=== PATIENT | male | born 1955 | race Caucasian/White ===

== ENCOUNTER → 2019-10-06 | Outpatient (CLI) | payer BC, MEDICARE | END | disposition home or self-care (01) | LOC: LABWHC1 10:36 | PROVIDERS: ATTEND Surgery Plastic and Reconstructive Surgery | DX: Z11.59 Encounter for screening for other viral diseases (principal) | CPT/HCPCS: 87635 ==

== ENCOUNTER → 2019-10-09 | Day surgery (SDC) | payer BC, MEDICARE ==
[2019-10-08 09:02] VITALS: BMI 28.8
--- NOTE | 2019-10-08 19:43 | P.GSHP ---
History of Present Illness H&P Date: 10/09/19 CHIEF COMPLAINT: Cologaurd HISTORY OF PRESENT ILLNESS: The patient is a 64-year-old male who presents with Cologaurd. Lower endoscopy was offered for further evaluation and management. PAST MEDICAL HISTORY: Please see list. PAST SURGICAL HISTORY: Please see list. MEDICATIONS: Please see list. ALLERGIES: Please see list. SOCIAL HISTORY: No illicit drug use FAMILY HISTORY: No reports of Crohn disease or ulcerative colitis. REVIEW OF ORGAN SYSTEMS: CONSTITUTIONAL: No reports of fevers or chills. PHYSICAL EXAM: VITAL SIGNS: Stable GENERAL: Well-developed pleasant in no acute distress. HEENT: No scleral icterus. Extraocular movements grossly intact. Moist buccal mucosa. NECK: Supple without lymphadenopathy. CHEST: Unlabored respirations. Equal bilateral excursions. CARDIOVASCULAR: Regular rate and rhythm. Distal 2+ pulses. ABDOMEN: Soft, nontender, nondistended. MUSCULOSKELETAL: No clubbing, cyanosis, or edema. ASSESSMENT: 1. Cologaurd positive PLAN: 1. Recommend proceeding with a lower endoscopy Past Medical History Past Medical History: Atrial Fibrillation, Cancer, Chest Pain / Angina, Diabetes Mellitus, Hyperlipidemia, Hypertension, Myocardial Infarction (OR) Additional Past Medical History / Comment(s): STATES 4 OR'S LAST 2014, AICD, HX OF MELANOMA., POSITIVE COLOGARD Last Myocardial Infarction Date:: 2014 History of Any Multi-Drug Resistant Organisms: None Reported Past Surgical History: AICD, Coronary Bypass/CABG, Heart Catheterization With Stent Additional Past Surgical History / Comment(s): cath with stent 2008, CABG March 2015 Past Anesthesia/Blood Transfusion Reactions: No Reported Reaction Date of Last Stent Placement:: 2014 Type of Cardiac Device: AICD Device Placement Date:: 2015 Past Psychological History: Anxiety Additional Psychological History / Comment(s): PANIC ATTACKS- ANXIOUS ABOUT COLONOSCOPY. Smoking Status: Former smoker Past Alcohol Use History: None Reported Additional Past Alcohol Use History / Comment(s): QUIT SMOKING 2014, SMOKED 3/4 PPD, STARTED SMOKING AGE 13. Past Drug Use History: Marijuana Additional Drug Use History / Comment(s): OCCASIONAL MARIJUANA USE - Past Family History Brother(s) Family Medical History: Myocardial Infarction (OR) Sister(s) Family Medical History: Diabetes Mellitus Medications and Allergies Home Medications Medication Instructions Recorded Confirmed Type Aspirin 81 mg PO HS 04/15/15 10/08/19 History Insulin Detemir [Levemir Flextouch] 80 units SQ HS 04/15/15 10/08/19 History Simvastatin [Zocor] 40 mg PO HS 04/15/15 10/08/19 History Albuterol Inhaler (Mhu) [Ventolin 1 - 2 puff INHALATION RT-Q6H PRN 11/14/15 10/08/19 History Hfa Inhaler (Mhu)] Furosemide [Lasix] 40 mg PO DAILY 11/14/15 10/08/19 History Losartan Potassium [Cozaar] 25 mg PO DAILY 11/14/15 10/08/19 History Apixaban [Eliquis] 5 mg PO BID tab 11/17/15 10/08/19 Rx Insulin Aspart [NovoLOG Flexpen] 15 units SQ TID-W/MEALS 10/08/19 10/08/19 History Metoprolol Succinate (ER) [Toprol 50 mg PO DAILY 10/08/19 10/08/19 History Xl] Allergies Allergy/AdvReac Type Severity Reaction Status Date / Time Penicillins Allergy Rash/Hives Verified 10/08/19 08:20
[~2019-10-09] MED LIST: LACTATED RINGERS 1,000 ML IV ONE; LACTATED RINGERS 1,000 ML IV SCH; LIDOCAINE 1% (10MG/ML) FOR IV START INTRADERMA ONE; LIDOCAINE 1% INJ 10MG/ML (20 ML MDV) ONE; MIDAZOLAM 2 MG/2 ML VIAL IVP ONE; MIDAZOLAM 2 MG/2 ML VIAL ONE; PROPOFOL 10 MG/ML 20 ML VIAL IV ONE
[2019-10-09 11:02] VITALS: RESP 16; TEMP 97
[2019-10-09 11:03] LABS: Glucose,Whole Blood 101 mg/dL (75-99)
--- NOTE | 2019-10-09 12:25 | P.HPADDEND ---
H&P Addendum H&P Addendum Date: 10/09/19 Patient comes in for first colonoscopy in lifetime. Had positive abnormal stool study test for colon adenoma. Will proceed with colonoscopy
--- NOTE | 2019-10-09 12:29 | P.PCN ---
Date of Procedure: 10/09/19 Description of Procedure: PREOPERATIVE DIAGNOSIS: Abnormal cologaurd First colonoscopy study POSTOPERATIVE DIAGNOSIS: Tubular adenoma sigmoid colon Tubular adenoma transverse colon Tubular adenoma descending colon Sigmoid diverticulosis OPERATION: Colonoscopy to the ileocecal valve and appendiceal orifice. Colonoscopy with multiple hot snare polypectomies SURGEON: Carmencita Chang MD. ANESTHESIA: MAC. INDICATIONS: The patient is an 64-year-old male who presents for first colonoscopy study. He has abnormal stool study for adenoma. Benefits and risks were described and informed consent was obtained. DESCRIPTION OF PROCEDURE: The patient had undergone Suprep. He had been brought into the operating room and laid in the left lateral decubitus position. After adequate intravenous sedation, the rectum was examined with 2% lidocaine jelly. The prostate was unremarkable. No external hemorrhoids were encountered. The rectal tone was within normal limits. No lesions were palpated in the rectal vault. An Olympus colonoscope was advanced until the ileocecal valve and appendiceal orifice were clearly viewed. The prep was fair. Sigmoid diverticulosis was encountered. Multiple colonic polyps were found and snare polypectomy. No evidence of focal colitis was found. Retroflexion of the scope demonstrated grade 2 internal hemorrhoids without active bleeding or inflammation. The colon was desufflated. The patient had tolerated the procedure well. Withdrawal time was over 6 minutes. FINDINGS: Aronchick preparation quality scale 2 (1-5) Internal hemorrhoids, grade 2 No external hemorrhoids No arteriovenous malformations. Sigmoid diverticulosis, moderate. Removal of 3 polyps from the proximal, mid transverse colon and descending colon: - Snare polypectomy 10 cm from the anal verge, 5 mm tubulovillous adenoma polyp. - Snare polypectomy 60 cm from the anal verge, 8 mm flat villous adenoma polyp. - Snare polypectomy midtransverse colon, 12 mm flat villous adenoma polyp. No focal colitis. RECOMMENDATIONS: Repeat colonoscopy 2 years, September 2021 Plan - Discharge Summary New Discharge Prescriptions: No Action Insulin Detemir [Levemir Flextouch] 80 units SQ HS Aspirin 81 mg PO HS Simvastatin [Zocor] 40 mg PO HS Furosemide [Lasix] 40 mg PO DAILY Albuterol Inhaler (Mhu) [Ventolin Hfa Inhaler (Mhu)] 1 - 2 puff INHALATION RT-Q6H PRN PRN Reason: Shortness Of Breath Losartan Potassium [Cozaar] 25 mg PO DAILY Apixaban [Eliquis] 5 mg PO BID tab Metoprolol Succinate (ER) [Toprol Xl] 50 mg PO DAILY Insulin Aspart [NovoLOG Flexpen] 15 units SQ TID-W/MEALS Discharge Medication List Aspirin 81 mg PO HS 04/15/15 [History] Insulin Detemir [Levemir Flextouch] 80 units SQ HS 04/15/15 [History] Simvastatin [Zocor] 40 mg PO HS 04/15/15 [History] Albuterol Inhaler (u) [Ventolin Hfa Inhaler (u)] 1 - 2 puff INHALATION RT- Q6H PRN 11/14/15 [History] Furosemide [Lasix] 40 mg PO DAILY 11/14/15 [History] Losartan Potassium [Cozaar] 25 mg PO DAILY 11/14/15 [History] Apixaban [Eliquis] 5 mg PO BID tab 11/17/15 [Rx] Insulin Aspart [NovoLOG Flexpen] 15 units SQ TID-W/MEALS 10/08/19 [History] Metoprolol Succinate (ER) [Toprol Xl] 50 mg PO DAILY 10/08/19 [History]
[2019-10-09 12:31] VITALS: PULSE 72
[2019-10-09 12:51] VITALS: BP 120/80
== END | disposition home or self-care (01) ==
LOC: ORWHC2ENDO 10:29
PROVIDERS: ATTEND Surgery Plastic and Reconstructive Surgery
DX: D12.3 Benign neoplasm of transverse colon (principal); D12.4 Benign neoplasm of descending colon; D12.5 Benign neoplasm of sigmoid colon; K57.30 Diverticulosis of large intestine without perforation or abscess without bleeding; K64.1 Second degree hemorrhoids; I25.2 Old myocardial infarction; I48.91 Unspecified atrial fibrillation; I10 Essential (primary) hypertension; E78.5 Hyperlipidemia, unspecified; E11.9 Type 2 diabetes mellitus without complications; F41.9 Anxiety disorder, unspecified; F41.0 Panic disorder [episodic paroxysmal anxiety]; Z88.0 Allergy status to penicillin; Z79.4 Long term (current) use of insulin; Z79.01 Long term (current) use of anticoagulants; Z79.82 Long term (current) use of aspirin; Z79.899 Other long term (current) drug therapy; Z87.891 Personal history of nicotine dependence; Z95.1 Presence of aortocoronary bypass graft; Z95.5 Presence of coronary angioplasty implant and graft; Z95.810 Presence of automatic (implantable) cardiac defibrillator; Z85.820 Personal history of malignant melanoma of skin; Z82.49 Family history of ischemic heart disease and other diseases of the circulatory system; Z83.3 Family history of diabetes mellitus
CPT/HCPCS: 88305; 45385; J2250; J2001; J2704

== ENCOUNTER → 2021-03-30 | Outpatient (CLI) | payer MEDICARE, BC | END | disposition home or self-care (01) | LOC: RADCTMAIN 11:50 | PROVIDERS: ATTEND Family Medicine | DX: I73.9 Peripheral vascular disease, unspecified (principal) | CPT/HCPCS: 82565; 84520 ==

== ENCOUNTER → 2021-05-09 | Outpatient (CLI) | payer MEDICARE, BC ==
--- NOTE | 2021-05-10 08:08 | CT ---
CT angiogram of the abdominal aorta with runoff HISTORY: Peripheral vascular disease helical acquisition obtained from the level of the descending aorta through the legs following dynami c administration 80 cc [id number]-370 IV. Automated exposure control for dose reduction, DLP 1610.7 mGyce ntimeters No comparisons V descending aorta is patent, atheromatous changes are present within the abdominal aorta, there is a theromatous plaque, the celiac axis, superior mesenteric artery, bilateral renal arteries, inferior m esenteric artery are patent. Common iliac arteries show atheromatous change, there is plaque proximal ly in the right, axial image #83, there may be some poststenotic dilatation immediately distal. The l eft common iliac artery is occluded but reconstituted via the internal iliac artery. Right internal i liac, bilateral external iliac arteries, common femoral, deep and superficial femoral arteries are pa tent. Atheromatous changes present at the level of Andres's canal bilaterally. The popliteal artery, trifurcation vessels are patent proximally. On the left the tibioperoneal trunk does not enhance well distally, anterior tibial and posterior tibial arteries are patent into the foot. On the right anter ior and posterior tibial arteries are patent into the foot do show some atheromatous change, tibioper cueto trunk is not well enhanced peripherally. There is a lead in the right ventricle. Lung bases are clear. There are is calcification in the lower pole of the left kidney, probable partial staghorn calculus measuring proximately 2 cm x 2.2 cm in s ize. Degenerative disc changes, facet arthropathy noted in the lumbar spine. No evident solid organ a bdomen. No ascites. Prostate is enlarged. Urinary bladder is distended. IMPRESSION: Left common iliac artery occlusion, peripheral vascular occlusive disease as described. L eft-sided nephrolithiasis.
== END | disposition home or self-care (01) ==
LOC: RADCTMAIN 17:59
PROVIDERS: ATTEND Family Medicine
DX: I74.5 Embolism and thrombosis of iliac artery (principal); I99.8 Other disorder of circulatory system
CPT/HCPCS: 82565; 84520; 75635; 36415; Q9967

== ENCOUNTER 2021-09-21 11:11 | Day surgery (SDC) | payer MEDICARE, BC ==
[2021-09-20 13:35] VITALS: BMI 28.3
[~2021-09-21 11:11] MED LIST changes: +ALPRAZolam 0.25 MG TAB PO PRN; +ASPIRIN 325 MG TAB PO PRN; -LACTATED RINGERS 1,000 ML IV ONE; -LACTATED RINGERS 1,000 ML IV SCH; -LIDOCAINE 1% (10MG/ML) FOR IV START INTRADERMA ONE; -LIDOCAINE 1% INJ 10MG/ML (20 ML MDV) ONE; -MIDAZOLAM 2 MG/2 ML VIAL IVP ONE; -MIDAZOLAM 2 MG/2 ML VIAL ONE; -PROPOFOL 10 MG/ML 20 ML VIAL IV ONE; +SODIUM CHLORIDE 0.9% 1,000 ML in EMPTY BAG 1 BAG IV ONE
[2021-09-21 11:39] LABS: Glucose,Whole Blood 123 mg/dL (75-99)
[2021-09-21] MEDS ORDERED: SODIUM CHLORIDE 0.9% 1,000 ML IV ONE (12:05)
[2021-09-21 12:20] LABS: Basophils # (A) 0.1 k/uL (0-0.2); Basophils % (A) 1 %; Eosinophils # (A) 0.2 k/uL (0-0.7); Eosinophils % (A) 2 %; HCT 50.7 % (39.0-53.0); HGB 16.2 gm/dL (13.0-17.5); Lymphocytes # (A) 1.3 k/uL (1.0-4.8); Lymphocytes % (A) 14 %; MCH 30.8 pg (25.0-35.0); MCV 96.2 fL (80.0-100.0); Mean Platelet Volume 7.1; Monocytes # (A) 0.6 k/uL (0-1.0); Monocytes % (A) 7 %; Neutrophils # (A) 6.7 k/uL (1.3-7.7); Neutrophils % (A) 74 %; Platelet Count 242 k/uL (150-450); RBC 5.28 m/uL (4.30-5.90); RDW 13.6 % (11.5-15.5); WBC 9.1 k/uL (3.8-10.6)
[2021-09-21 12:25] LABS: Calcium 9.2 mg/dL (8.4-10.2)
[2021-09-21] MEDS ORDERED: HEPARIN SODIUM 1,000 UN/ML (10ML VL) ONE (13:13)
[2021-09-21] MEDS ORDERED: fentaNYL (PF) 50 MCG/ML 2 ML AMP ONE (13:22)
[2021-09-21] MEDS: fentaNYL (PF) 50 MCG/ML 2 ML AMP IV ONE ×2 (13:24→14:40)
[2021-09-21] MEDS: MIDAZOLAM 2 MG/2 ML VIAL IV ONE ×2 (13:24→13:34)
[2021-09-21] MEDS: LIDOCAINE 1% INJ 10MG/ML (30 ML VIAL-PF) SQ ONE ×2 (13:27→13:48)
[2021-09-21] MEDS ORDERED: hydrALAZINE HCL 20 MG/ML 1 ML VIAL ONE (14:42)
[2021-09-21] MEDS ORDERED: hydrALAZINE HCL 20 MG/ML 1 ML VIAL IV ONE (14:43)
[2021-09-21] MEDS ORDERED: IOPAMIDOL-370 100ML BTL INJ ONE (15:00)
[2021-09-21] MEDS ORDERED: ENALAPRILAT 1.25 MG/ML 1 ML VIAL ONE (15:02)
[2021-09-21] MEDS ORDERED: ENALAPRILAT 1.25 MG/ML 1 ML VIAL IV ONE (15:04)
[2021-09-21] MEDS ORDERED: ONDANSETRON 4 MG/2 ML VIAL ONE (15:11)
[2021-09-21] MEDS ORDERED: NALOXONE 0.4 MG/ML 1 ML VIAL IVP PRN (15:23)
[2021-09-21] MEDS ORDERED: ALBUTEROL NEBULIZED 2.5 MG/3 ML INHALATION PRN (15:43)
[2021-09-21] MEDS ORDERED: hydrALAZINE HCL 20 MG/ML 1 ML VIAL IVP PRN (15:44)
--- NOTE | 2021-09-21 15:44 | P.OP ---
Date of Procedure: 09/21/21 Description of Procedure: Preoperative diagnosis: [Left common iliac occlusion, significant peripheral arterial disease, Cameron 3, monophasic femoral artery] Postoperative diagnosis: Same Procedure: [Ultrasound-guided left common femoral artery access Left iliofemoral angiogram Ultrasound-guided Right common femoral artery access Right iliofemoral angiogram Aortogram Percutaneous transluminal stent placement left common iliac artery, 11 x 39, 8 x 39 Percutaneous transluminal balloon angioplasty 10 x 40 balloon Moderate conscious sedation time 96 minutes Surgeon: Sumaya Demarco D.O. EBL: [Less than 10 mL] IV fluids: [See records] Urine output: [Not measured] Drains: [None] Complications: [None immediately apparent] Condition: [Stable to recovery although significantly hypertensive, medicated] Operative indication and findings: [Patient is a 66-year-old male who been having significant increasing pain in his left lower extremity. He is unable to walk 100 feet before he has the pain. He underwent ultrasound imaging which showed an ROBBY 0.7 with a monophasic femoral vessel. He also had issues waking up with numbness and tingling in that leg with significant pain and some instances of rest pain although not continuous. Computed tomography scan had been performed and he is found to have a left common iliac artery occlusion. Risks and benefits of going forward with intervention were discussed. He seemingly understood and is willing to proceed.] Procedure in detail: [Patient was taken to the special suite and placed in supine position. Bilateral groins are prepped and draped in usual sterile fashion. A preprocedure timeout was performed, all parties are in agreement. Using THE LEFT COMMON EMERALD ARTERY WAS IDENTIFIED. THE SKIN OVERLYING WAS ANESTHETIZED WITH 1% LIDOCAINE PLAIN. USING A MULTIPURPOSE NEEDLE UNDER DIRECT VISUALIZATION FEMORAL ARTERY WAS ACCESSED. After this Seldinger technique was used to place a 5-Sudanese sheath. A in angiogram was performed revealing blunt occlusion of the common iliac artery. Multiple attempts were made to cross this area from this side but were unsuccessful. At that point the right common femoral artery was identified with ultrasound. The skin overlying was anesthetized and using a micro-access needle and Seldinger technique a 5-Sudanese sheath was placed. A right iliofemoral injury and was performed. There was an area of mild stenosis of the right common iliac artery but does not appear to be flow limiting. Catheters and wires were used access the aorta. An aortogram was performed revealing significant occlusion with reconstitution of the common iliac artery. Catheters and wires were then used to cross the lesion. A snare was then used to floss the wire. Luminal access from the left femoral was obtained into the level of the aorta via this manner. This was confirmed with angiogram. The sheath was upsized to an 8-Sudanese. Areas were measured and at this point unfortunately there was no 11 x 59 stent available therefore initially an 11 x 39 stent was placed. An image was performed revealing signif icant improvement however there was some haziness just distally therefore it was extended with an 8 x 39 stent. These were ballooning expandable covered stents. The 8 stent was then postdilated with a 10 x 40 balloon up to appropriate size. Using a patent catheter final angiogram was performed revealing successful left common iliac stenting with no further stenosis with adequate flow of contrast. Given all this catheters and wires were removed. A final femoral angiogram was performed and the left access site was closed with an angioseal. The sheath on the right will be held via manual pressure once appropriate blood pressure control. Patient was rendered to recovery in stable condition having tolerated the procedure well.]
--- NOTE | 2021-09-21 16:45 | IR ---
EXAMINATION TYPE: IR stent intravas non coronary DATE OF EXAM: 09/21/2021 CLINICAL HISTORY: Peripheral vascular disease. TECHNIQUE: Fluoroscopy. COMPARISON: None. FINDINGS: Fluoroscopic guidance was provided during angiogram with stent insertion procedure perform ed by Dr. Demarco. A total of 20.1 minute of fluoroscopic time was utilized during the procedure and 6 70 spot images are acquired. Please refer to procedure note for further details. IMPRESSION: As Above.
[2021-09-21] MEDS: LOSARTAN 25 MG TAB PO SCH (17:03)
[2021-09-21 17:08] LABS: Glucose,Whole Blood 129 mg/dL (75-99)
[2021-09-21] MEDS: INSULIN ASPART (NovoLOG) 100 UNIT/ML VIAL SQ SCH ×2 (17:38→21:02)
[2021-09-21] MEDS: METOPROLOL SUCCINATE (ER) 50 MG TAB.ER.24H PO SCH (18:05)
[2021-09-21 18:26] VITALS: RESP 18
--- NOTE | 2021-09-21 19:54 | CONS ---
CONSULTATION DATE OF SERVICE: 09/21/2021 REASON FOR CONSULTATION: Advice regarding hypertensive urgency and other multiple medical issues, requested by Dr. Demarco. HISTORY OF PRESENT ILLNESS: This 66-year-old gentleman with a past medical history of CAD, COPD, diabetes mellitus, hypertension, hyperlipidemia, being followed by Dr. Noel Wilson in the outpatient setting, underwent a peripheral vascular procedure on the by Dr. Demarco. During the procedure the blood pressure was elevated up to 220/110. Patient received Vasotec. The patient is being closely monitored in the postoperative recovery unit. The patient also had episodes of vomiting. Otherwise, there is no history any headache, loss of consciousness, seizures, chest pain, palpitations. The patient also had previously hypotensive episodes with the blood pressure medications, according to him. PAST MEDICAL HISTORY: COPD, diabetes mellitus, hypertension, hyperlipidemia. HOME MEDICATIONS: Reviewed. They include Zocor, Toprol-XL. Doses and other medications are reviewed. ALLERGIES: PENICILLIN. FAMILY HISTORY: History of myocardial infarction. SOCIAL HISTORY: Previous history of smoking. REVIEW OF SYSTEMS: Fourteen-point review of systems negative except as mentioned earlier. PHYSICAL EXAMINATION: Pulse is 116, blood pressure is 170/88, respiration 20, temperature normal. HEENT: Conjunctivae normal. Oral mucosa moist. CARDIOVASCULAR: S1, S2 muffled. RESPIRATION: Breath sounds diminished at the bases. No rhonchi. No crackles. ABDOMEN: Soft, non-tender. Status post surgery. NERVOUS SYSTEM: No focal deficit. SKIN: No ulcer, rash, bleeding. LABS: Reviewed. BMP within normal limits blood glucose 134. ASSESSMENT: 1. Accelerated hypertension secondary to not taking blood pressure medication in the morning. 2. Peripheral vascular disease. 3. Coronary artery disease. 4. Chronic obstructive pulmonary disease. 5. Diabetes mellitus. 6. Hypertension. 7. Hyperlipidemia. RECOMMENDATIONS AND DISCUSSION: In this 66-year-old gentleman who presented after surgery, at this time I recommend continuing to monitor. I would recommend p.r.n. hydralazine. Resume the home medication. Monitor blood pressure closely. Monitor blood sugar closely. We will follow the patient closely with you. The patient may be asked to follow with Dr. Noel Wilson closely after discharge. P.r.n. Vasotec is ordered. Thank you Dr. Demarco, for letting us participate in the care of this patient. MMODL / IJN: [id number] / MTDD
[2021-09-21 20:42] LABS: Glucose,Whole Blood 185 mg/dL (75-99)
[2021-09-21] MEDS ORDERED: INSULIN DETEMIR (LEVEMIR) 100 UNIT/ML SYR SQ SCH (21:00)
[2021-09-21] MEDS ORDERED: ATORVASTATIN 20 MG TAB PO SCH (21:00)
[2021-09-22 03:55] VITALS: BP 152/71; PULSE 72; TEMP 98.4
[2021-09-22 06:23] LABS: Glucose,Whole Blood 81 mg/dL (75-99)
[2021-09-22] MEDS: INSULIN ASPART (NovoLOG) 100 UNIT/ML VIAL SQ SCH (06:37)
--- NOTE | 2021-09-22 08:38 | P.DS ---
Providers Expected date of discharge: 09/22/21 Attending physician: Sumaya Demarco DO Primary care physician: No[facility] Course: Discharge diagnosis: Left iliac occlusion, peripheral arterial disease status post Left iliofemoral angiogram, right ileal femoral angiogram, aortogram, percutaneous stent of the left common iliac artery and percutaneous balloon angioplasty. This is 66-year-old male with history of coronary artery disease and peripheral arterial disease, former smoker who underwent the above scheduled procedure. He is seen and examined today. He is without any complaints. No bleeding from the left puncture site. He is able to move bilateral lower extremities. No shortness of breath or chest pain. He's been up ambulating and voiding without difficulty. Tolerating his breakfast. General appearance: The patient is alert, oriented, appears in no acute distress. HET: Head is normocephalic and atraumatic. Pupils are equal and reactive. Neck: Supple without lymphadenopathy. Trachea midline. Heart: S1 S2. Regular rate and rhythm. Lungs: Clear to auscultation bilaterally. Abdomen: Soft, nontender, nondistended. Extremities: Normal skin color and turgor. No cyanosis, rash, ulceration, clubbing, or edema. Left lower extremity with palpable pedal pulse, good capillary refill, warm to the touch. Neurological: No focal deficits. Strength and sensation are grossly intact. The impression and plan of care has been dictated as directed. I performed a history and examination of this patient, discussed the same with the dictator. I agree with the dictator's note ,documented as a scribe. Any additional findings or plans will be noted. Procedures: Procedure: [Ultrasound-guided left common femoral artery access Left iliofemoral angiogram Ultrasound-guided Right common femoral artery access Right iliofemoral angiogram Aortogram Percutaneous transluminal stent placement left common iliac artery, 11 x 39, 8 x 39 Percutaneous transluminal balloon angioplasty 10 x 40 balloon Moderate conscious sedation time 96 minutes Plan - Discharge Summary Discharge Rx Participant: No New Discharge Prescriptions: New Clopidogrel [Plavix] 75 mg PO DAILY #30 tab Continue Insulin Detemir [Levemir Flextouch Pen] 75 units SQ HS Simvastatin [Zocor] 40 mg PO HS Albuterol Inhaler (Mhu) [Ventolin Hfa Inhaler (Mhu)] 1 - 2 puff INHALATION RT-Q6H PRN PRN Reason: Shortness Of Breath Losartan Potassium [Cozaar] 25 mg PO DAILY Apixaban [Eliquis] 5 mg PO BID tab Metoprolol Succinate (ER) [Toprol XL] 50 mg PO DAILY Insulin Aspart [NovoLOG Flexpen] 15 units SQ TID-W/MEALS Discontinued Aspirin 81 mg PO HS Discharge Medication List Insulin Detemir [Levemir Flextouch Pen] 75 units SQ HS 04/15/15 [History] Simvastatin [Zocor] 40 mg PO HS 04/15/15 [History] Albuterol Inhaler (Mhu) [Ventolin Hfa Inhaler (Mhu)] 1 - 2 puff INHALATION RT- Q6H PRN 11/14/15 [History] Losartan Potassium [Cozaar] 25 mg PO DAILY 11/14/15 [History] Apixaban [Eliquis] 5 mg PO BID tab 11/17/15 [Rx] Insulin Aspart [NovoLOG Flexpen] 15 units SQ TID-W/MEALS 10/08/19 [History] Metoprolol Succinate (ER) [Toprol XL] 50 mg PO DAILY 10/08/19 [History] Clopidogrel [Plavix] 75 mg PO DAILY #30 tab 09/22/21 [Rx] Follow up Appointment(s)/Referral(s): Sumaya Demarco DO [STAFF PHYSICIAN] - 1 Week Noel Wilson DO [Primary Care Provider] - 1 Week Patient Instructions/Handouts: Peripheral Vascular Angioplasty (DC), Peripheral Vascular Stent Placement (DC) Activity/Diet/Wound Care/Special Instructions: No heavy, lifting, pushing, or pulling of objects greater than 10-15 pounds. No vigorous activity. Shower daily; no tub baths, pools, or hot tubs. No driving until seen by surgeon in follow-up visit. Notify surgeon with inability to pass flatus or have bowel movements, fever greater than 101, changes in incision such as redness, swelling, drainage, or increased pain. Patient verbalized understanding of discharge instructions. Discharge Disposition: HOME SELF-CARE
[2021-09-22] MEDS ORDERED: CLOPIDOGREL 75 MG TAB PO SCH (09:00)
[2021-09-22] MEDS: METOPROLOL SUCCINATE (ER) 50 MG TAB.ER.24H PO SCH (09:58)
[2021-09-22] MEDS: LOSARTAN 25 MG TAB PO SCH (09:58)
== END 2021-09-22 10:30 | disposition home or self-care (01) ==
LOC: CATHCVL 11:11 → 3SCARD 14:59 → 6NMEDSUR 14:59 → CATHCVL 09-22 10:30
PROVIDERS: ATTEND Surgery
DX: I74.5 Embolism and thrombosis of iliac artery (principal); I25.10 Atherosclerotic heart disease of native coronary artery without angina pectoris; J44.9 Chronic obstructive pulmonary disease, unspecified; I16.0 Hypertensive urgency; R11.10 Vomiting, unspecified; E11.51 Type 2 diabetes mellitus with diabetic peripheral angiopathy without gangrene; E78.5 Hyperlipidemia, unspecified; I10 Essential (primary) hypertension; Z82.49 Family history of ischemic heart disease and other diseases of the circulatory system; Z79.899 Other long term (current) drug therapy; Z88.0 Allergy status to penicillin; Z87.891 Personal history of nicotine dependence
CPT/HCPCS: 37221; 80048; 82565; 85025; C1894 ×4; C1760; C1733; C1769 ×5; C1725; C1887; C1874 ×2; J2250; J0360; J2405; J2001; J3010; Q9967

== ENCOUNTER → 2022-12-25 | Outpatient (CLI) | payer MEDICARE, BC ==
--- NOTE | 2022-12-25 23:13 | CTL ---
EXAMINATION TYPE: CT Low Dose Lung DATE OF EXAM ORDERED: 12/25/2022 HISTORY: . Lung cancer screening CT DLP: [address] CTDI: 3.94 mGy Automated exposure control for dose reduction was used. SCREENING VISIT: Initial COMPARISON: None TECHNIQUE: Low dose computed tomography scan was performed through the chest at 1 mm thick sections a nd reconstructed images in the coronal plane at [address] DIAGNOSTIC QUALITY: Limited, but interpretable FINDINGS: LUNG NODULES: None. LUNGS: COPD: Severity: None Fibrosis: Severity: None Lymph nodes: None Other findings: None RIGHT PLEURAL SPACE: Effusion: None Calcification: None Thickening: None Pneumothorax: None LEFT PLEURAL SPACE: Effusion: None Calcification: None Thickening: None Pneumothorax: None HEART: Heart Size: Normal Coronary calcification: Moderate Pericardial effusion: None OTHER FINDINGS: Upper abdomen: Normal Bony thorax: Normal Supraclavicular region: Normal Other: Ascending thoracic aorta at the level the main pulmonary artery measures 3.7 cm. The main pul monary artery at the bifurcation measures 2.5 cm. IMPRESSION: Negative CT screening chest FOLLOW UP CT CHEST RECOMMENDATION: Follow-up low-dose CT chest one year CT LUNG RAD: Lung-Rad 1 Negative
== END | disposition home or self-care (01) ==
LOC: RADCTMAIN 12:36
PROVIDERS: ATTEND Family Medicine
DX: Z12.2 Encounter for screening for malignant neoplasm of respiratory organs (principal); Z87.891 Personal history of nicotine dependence
CPT/HCPCS: 71271

== ENCOUNTER → 2023-07-02 | Outpatient (CLI) | payer MEDICARE, BC ==
--- NOTE | 2023-07-03 12:56 | US ---
EXAMINATION TYPE: US kidneys/renal and bladder DATE OF EXAM: 07/02/2023 COMPARISON: None CLINICAL INDICATION: Male, 68 years old with history of R94.4 ABNORMAL RESULTS OF KIDNEY FUNCTION OLIVIA DIES; Abnormal labs. Patient is diabetic. EXAM MEASUREMENTS: Right Kidney: 10.2 x 5.1 x 4.9 cm Left Kidney: 11.7 x 4.5 x 5.7 cm Right Kidney: No hydronephrosis or masses seen, cortical thinning Left Kidney: Lower pole echogenic focus with shadowing = 1.5 cm Bladder: Partially distended, anechoic Bilateral Jets seen IMPRESSION: 1. No hydronephrosis. 2. There may be underlying chronic medical renal disease. 3. A 1.5 cm nonobstructive left lower pole renal calculus.
== END | disposition home or self-care (01) ==
LOC: RADUSWWP 15:48
PROVIDERS: ATTEND Family Medicine
DX: R94.4 Abnormal results of kidney function studies (principal); E11.9 Type 2 diabetes mellitus without complications; N20.0 Calculus of kidney
CPT/HCPCS: 76770

== ENCOUNTER → 2023-10-29 | Outpatient (CLI) | payer MEDICARE, BC ==
[2023-10-30 03:07] LABS: BUN/Creat Ratio 18.89 Ratio (12.00-20.00); Blood Urea Nitrogen 35.9 mg/dL (9.0-27.0); Chloride 110 mmol/L (96-109); Glucose 72 mg/dL (70-110); Potassium 5.2 mmol/L (3.5-5.5); Sodium 146 mmol/L (135-145)
[2023-10-30 03:08] LABS: Calcium 9.2 mg/dL (8.7-10.3)
== END | disposition home or self-care (01) ==
LOC: LABWHC1 14:05
PROVIDERS: ATTEND Nurse Practitioner Acute Care
DX: N18.31 Chronic kidney disease, stage 3a (principal)
CPT/HCPCS: 36415; 80048

== ENCOUNTER 2024-02-15 18:42 | Emergency (ER) | payer MEDICARE, BC ==
--- NOTE | 2024-02-15 18:56 | ED ---
Fall HPI - General Stated Complaint: Fall Time Seen by Provider: 02/15/24 18:47 Source: RN notes reviewed, old records reviewed Mode of arrival: ambulatory Limitations: no limitations - History of Present Illness Initial Comments: This is a 68-year-old male to the ER for evaluation for possible syncopal event and fall down a flight of stairs. Patient states he feels okay. 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: no Place Fall Occurred: home Loss of Consciousness: none Prolonged Down Time?: no Symptoms Prior to Fall: none Location: abdomen Severity: moderate Context: tripped/slipped Associated Symptoms: denies - Related Data Home Medications Medication Instructions Recorded Confirmed Albuterol Inhaler [Ventolin Hfa 1 - 2 puff INHALATION RT-Q6H PRN 11/14/15 02/15/24 Inhaler] Metoprolol Succinate (ER) [Toprol 50 mg PO DAILY 10/08/19 02/15/24 XL] Amiodarone [Cordarone] 200 mg PO DAILY 02/15/24 02/15/24 Aspirin EC [Ecotrin Low Dose] 81 mg PO DAILY 02/15/24 02/15/24 Atorvastatin [Lipitor] 40 mg PO DAILY 02/15/24 02/15/24 Ciprofloxacin HCl [Cipro] 500 mg PO BID 02/15/24 02/15/24 Dapagliflozin Propanediol [Farxiga] 10 mg PO DAILY 02/15/24 02/15/24 Ezetimibe [Zetia] 10 mg PO DAILY 02/15/24 02/15/24 Insulin Degludec [Tresiba 40 - 55 units SQ HS PRN 02/15/24 02/15/24 Flextouch U-100 Pen] Insulin Lispro [Admelog Solostar] See Protocol SQ BID PRN 02/15/24 02/15/24 Losartan [Cozaar] 25 mg PO DAILY 02/15/24 02/15/24 Tamsulosin [Flomax] 0.4 mg PO DAILY 02/15/24 02/15/24 Previous Rx's Medication Instructions Recorded Apixaban [Eliquis] 5 mg PO BID tab 11/17/15 Allergies Allergy/AdvReac Type Severity Reaction Status Date / Time Penicillins Allergy Rash/Hives Verified 02/15/24 20:41 Review of Systems ROS Statement: Those systems with pertinent positive or pertinent negative responses have been documented in the HPI. ROS Other: All systems not noted in ROS Statement are negative. Past Medical History Past Medical History: Coronary Artery Disease (CAD), Cancer, Chest Pain / Angina, COPD, Diabetes Mellitus, Hyperlipidemia, Hypertension, Myocardial Infarction (IN) Additional Past Medical History / Comment(s): HX IN'S X4-5, LAST IN 2014, HX OF MELANOMA. Last Myocardial Infarction Date:: 2014 History of Any Multi-Drug Resistant Organisms: None Reported Past Surgical History: AICD, Coronary Bypass/CABG, Heart Catheterization With Stent, Orthopedic Surgery Additional Past Surgical History / Comment(s): 1 stent, CABG March 2015, right hand surgery for Dupuytren's.. Past Anesthesia/Blood Transfusion Reactions: No Reported Reaction Date of Last Stent Placement:: 2008 Type of Cardiac Device: AICD Device Placement Date:: Unknown Past Psychological History: No Psychological Hx Reported Additional Psychological History / Comment(s): PANIC ATTACKS- ANXIOUS ABOUT COLONOSCOPY. Smoking Status: Former smoker Past Alcohol Use History: None Reported Additional Past Alcohol Use History / Comment(s): QUIT SMOKING IN 2014, SMOKED 3/4 PPD, STARTED SMOKING AGE 13. Past Drug Use History: None Reported Additional Drug Use History / Comment(s): OCCASIONAL MARIJUANA USE. Aware no use 24 hrs prior to procedure. - Past Family History Brother(s) Family Medical History: Myocardial Infarction ([place]) Sister(s) Family Medical History: Diabetes Mellitus General Exam General appearance: alert, in no apparent distress Head exam: Present: atraumatic, normocephalic, normal inspection Eye exam: Present: normal appearance, PERRL, EOMI. Absent: scleral icterus, c onjunctival injection, periorbital swelling ENT exam: Present: normal exam, mucous membranes moist Neck exam: Present: normal inspection. Absent: tenderness, meningismus, lymphadenopathy Respiratory exam: Present: normal lung sounds bilaterally. Absent: respiratory distress, wheezes, rales, rhonchi, stridor Cardiovascular Exam: Present: regular rate, normal rhythm, normal heart sounds. Absent: systolic murmur, diastolic murmur, rubs, gallop, clicks GI/Abdominal exam: Present: soft, normal bowel sounds. Absent: distended, tenderness, guarding, rebound, rigid Extremities exam: Present: normal inspection, full ROM, normal capillary refill. Absent: tenderness, pedal edema, joint swelling, calf tenderness Back exam: Present: normal inspection Neurological exam: Present: alert, oriented X3, CN II-XII intact Psychiatric exam: Present: normal affect, normal mood Skin exam: Present: warm, dry, intact, normal color. Absent: rash Course Vital Signs 02/15/24 02/15/24 18:54 22:10 Temperature 98.3 F 98.3 F Pulse Rate 60 60 Respiratory 18 18 Rate Blood Pressure 136/64 140/68 O2 Sat by Pulse 96 96 Oximetry - Reevaluation(s) Reevaluation #1: 02/15/24 18:59 Records reviewed Reevaluation #2: 02/15/24 19:00 Patient symptoms unchanged Reevaluation #3: 02/15/24 21:35 Informed of results and questions answered Reevaluation #4: Was pt. sent in by a medical professional or institution (, PA, INTERNATIONAL MARKETING COORDINATOR, urgent care, hospital, or penitentiary...) When possible be specific @ -no Did you speak to anyone other than the patient for history (EMS, parent, family, police, friend...)? What history was obtained from this source @ -no Did you review nursing and triage notes (agree or disagree)? Why? @ -agree Are old charts reviewed (outside hosp., previous admission, EMS record, old EKG, old radiological studies, urgent care reports/EKG's, penitentiary records)? Report findings @ -yes Differential Diagnosis (chest pain, altered mental status, abdominal pain women, abdominal pain men, vaginal bleeding, weakness, fever, dyspnea, syncope, heada jennifer, dizziness, GI bleed, back pain, seizure, CVA, palpatations, mental health, musculoskeletal)? @ -prior EKG interpreted by me (3pts min.). @ -yes X-rays interpreted by me (1pt min.). @ -yes negative for acute disease CT interpreted by me (1pt min.). @ -Yes negative for acute disease U/S interpreted by me (1pt. min.). @ -no What testing was considered but not performed or refused? (CT, X-rays, U/S, labs)? Why? @ -none What meds were considered but not given or refused? Why? @ -none Did you discuss the management of the patient with other professionals (professionals i.e. , PA, INTERNATIONAL MARKETING COORDINATOR, lab, RT, psych nurse, transition social worker, rn tele, teacher, chief compliance officer, field case manager)? Give summary @ -no Was smoking cessation discussed for >3mins.? @ -no Was critical care preformed (if so, how long)? @ -no Were there social determinants of health that impacted care today? How? (Homelessness, low income, unemployed, alcoholism, drug addiction, transportation, low edu. Level, literacy, decrease access to med. care, [facility], rehab)? @ -none Was there de-escalation of care discussed even if they declined (Discuss DNR or withdrawal of care, Hospice)? DNR status @ -no What co-morbidities impacted this encounter? (DM, HTN, Smoking, COPD, CAD, Cancer, CVA, ARF, Chemo, Hep., AIDS, mental health diagnosis, sleep apnea, morbid obesity)? @ -none Was patient admitted / discharged? Hospital course, mention meds given and route, prescriptions, significant lab abnormalities, going to OR and other pertinent info. @ - 68 male to ER for syncopal event syncopal with a fall down a flight of stairs. Patient fell down on his buttocks 1 stair at a time the whole way down. He is unsure if he had loss of consciousness or hit his head the patient has normal imaging here in the ER and can be discharged home Discharge Undiagnosed new problem with uncertain prognosis? @ -no Drug Therapy requiring intensive monitoring for toxicity (Heparin, Nitro, Insulin, Cardizem)? @ -no Were any procedures done? @ -no Diagnosis/symptom? @ -Fall fall downstairs with a syncopal event and back pain Acute, or Chronic, or Acute on Chronic? @ -Acute Uncomplicated (without systemic symptoms) or Complicated (systemic symptoms)? @ -Complicated Side effects of treatment? @ -no Exacerbation, Progression, or Severe Exacerbation? @ -exacerbation Poses a threat to life or bodily function? How? (Chest pain, [place], [place], pneumonia, PE, COPD, DKA, ARF, appy, cholecystitis, CVA, Diverticulitis, Homicidal, Suicidal, threat to staff... and all critical care pts) @ -yes extremes of age Reevaluation #5: Differential Syncope: Valvular disease, hypertrophic cardiomyopathy, pulmonary embolism, tamponade, tachycardia, bradycardia, [place], hypovolemia, hemorrhage, dissection, anemia, intracranial hemorrhage, seizure, hypoglycemia, carbon monoxide poisoning, this is not meant to be an all-inclusive list. Medical Decision Making - Medical Decision Making 68 male to ER for syncopal event syncopal with a fall down a flight of stairs. Patient fell down on his buttocks 1 stair at a time the whole way down. He is unsure if he had loss of consciousness or hit his head the patient has normal imaging here in the ER and can be discharged home - Lab Data Result diagrams: 02/15/24 18:55 02/15/24 18:55 Lab Results 02/15/24 02/15/24 02/15/24 Range/Units 18:55 18:55 18:55 WBC 7.8 (3.8-10.6) k/uL RBC 4.46 (4.30-5.90) m/uL Hgb 13.3 (13.0-17.5) gm/dL Hct 42.4 (39.0-53.0) % MCV 95.1 (80.0-100.0) fL MCH 29.8 (25.0-35.0) pg MCHC 31.4 (31.0-37.0) g/dL RDW 14.4 (11.5-15.5) % Plt Count 183 (150-450) k/uL MPV 7.4 Neutrophils % 85 % Lymphocytes % 6 % Monocytes % 7 % Eosinophils % 1 % Basophils % 0 % Neutrophils # 6.6 (1.3-7.7) k/uL Lymphocytes # 0.5 L (1.0-4.8) k/uL Monocytes # 0.5 (0-1.0) k/uL Eosinophils # 0.1 (0-0.7) k/uL Basophils # 0.0 (0-0.2) k/uL Hypochromasia Slight PT 10.7 (10.0-12.5) sec INR 1.0 (<1.2) APTT 25.1 (22.0-30.0) sec Sodium 137 (137-145) mmol/L Potassium 5.1 (3.5-5.1) mmol/L Chloride 107 (98-107) mmol/L Carbon Dioxide 24 (22-30) mmol/L Anion Gap 6 mmol/L BUN 50 H (9-20) mg/dL Creatinine 2.62 H (0.66-1.25) mg/dL Est GFR (CKD-EPI)AfAm 27 (>60 ml/min/1.73 sqM) Est GFR (CKD-EPI)NonAf 24 (>60 ml/min/1.73 sqM) Glucose 211 H (74-99) mg/dL Plasma Lactic Acid Jerry (0.7-2.0) mmol/L Calcium 8.4 (8.4-10.2) mg/dL Phosphorus 3.7 (2.5-4.5) mg/dL Magnesium 2.3 (1.6-2.3) mg/dL Total Bilirubin 0.7 (0.2-1.3) mg/dL AST 23 (17-59) U/L ALT 17 (4-49) U/L Alkaline Phosphatase 77 (38-126) U/L Troponin I (0.000-0.034) ng/mL Total Protein 5.7 L (6.3-8.2) g/dL Albumin 3.4 L (3.5-5.0) g/dL Urine Color Urine Appearance (Clear) Urine pH (5.0-8.0) Ur Specific [place] (1.001-1.035) Urine Protein (Negative) Urine Glucose (UA) (Negative) Urine Ketones (Negative) Urine Blood (Negative) Urine Nitrite (Negative) Urine Bilirubin (Negative) Urine Urobilinogen (<2.0) mg/dL Ur Leukocyte Esterase (Negative) Urine RBC (0-5) /hpf Urine WBC (0-5) /hpf Urine WBC Clumps (None) /hpf Urine Bacteria (None) /hpf 02/15/24 02/15/24 02/15/24 Range/Units 18:55 18:55 20:30 WBC (3.8-10.6) k/uL RBC (4.30-5.90) m/uL Hgb (13.0-17.5) gm/dL Hct (39.0-53.0) % MCV (80.0-100.0) fL MCH (25.0-35.0) pg MCHC (31.0-37.0) g/dL RDW (11.5-15.5) % Plt Count (150-450) k/uL MPV Neutrophils % % Lymphocytes % % Monocytes % % Eosinophils % % Basophils % % Neutrophils # (1.3-7.7) k/uL Lymphocytes # (1.0-4.8) k/uL Monocytes # (0-1.0) k/uL Eosinophils # (0-0.7) k/uL Basophils # (0-0.2) k/uL Hypochromasia PT (10.0-12.5) sec INR (<1.2) APTT (22.0-30.0) sec Sodium (137-145) mmol/L Potassium (3.5-5.1) mmol/L Chloride (98-107) mmol/L Carbon Dioxide (22-30) mmol/L Anion Gap mmol/L BUN (9-20) mg/dL Creatinine (0.66-1.25) mg/dL Est GFR (CKD-EPI)AfAm (>60 ml/min/1.73 sqM) Est GFR (CKD-EPI)NonAf (>60 ml/min/1.73 sqM) Glucose (74-99) mg/dL Plasma Lactic Acid Jerry 1.3 (0.7-2.0) mmol/L Calcium (8.4-10.2) mg/dL Phosphorus (2.5-4.5) mg/dL Magnesium (1.6-2.3) mg/dL Total Bilirubin (0.2-1.3) mg/dL AST (17-59) U/L ALT (4-49) U/L Alkaline Phosphatase (38-126) U/L Troponin I 0.013 (0.000-0.034) ng/mL Total Protein (6.3-8.2) g/dL Albumin (3.5-5.0) g/dL Urine Color Red Urine Appearance Turbid (Clear) Urine pH 5.5 (5.0-8.0) Ur Specific [place] 1.019 (1.001-1.035) Urine Protein 1+ H (Negative) Urine Glucose (UA) 4+ H (Negative) Urine Ketones Trace H (Negative) Urine Blood Large H (Negative) Urine Nitrite Negative (Negative) Urine Bilirubin Negative (Negative) Urine Urobilinogen <2.0 (<2.0) mg/dL Ur Leukocyte Esterase Small H (Negative) Urine RBC >182 H (0-5) /hpf Urine WBC 78 H (0-5) /hpf Urine WBC Clumps Moderate H (None) /hpf Urine Bacteria Rare H (None) /hpf - EKG Data -: EKG Interpreted by Me (EKG is paced 60 LA 227 QRS 165 QTc 485) - Radiology Data Radiology results: report reviewed (CT brain C-spine chest and pelvis x-ray negative for acute disease), image reviewed Disposition Clinical Impression: Syncope, Fall, Back pain, Contusion, Head injury Disposition: HOME SELF-CARE Condition: Fair Instructions (If sedation given, give patient instructions): Syncope (ED) Is patient prescribed a controlled substance at d/c from ED?: No Referrals: Noel Wilson DO [Primary Care Provider] - 1-2 days Time of Disposition: 21:25
[2024-02-15 19:00] VITALS: PULSE 60; RESP 18; TEMP 98.3
[2024-02-15] MEDS: SODIUM CHLORIDE 0.9% 1,000 ML IV STA (19:25)
[2024-02-15] MEDS: MORPHINE SULFATE 4 MG/ML SYRINGE IV STA (19:28)
[2024-02-15 19:30] LABS: Basophils % (A) 0 %; Eosinophils # (A) 0.1 k/uL (0-0.7); Eosinophils % (A) 1 %; HCT 42.4 % (39.0-53.0); HGB 13.3 gm/dL (13.0-17.5); Hypochromasia Slight; Lymphocytes # (A) 0.5 k/uL (1.0-4.8); Lymphocytes % (A) 6 %; MCH 29.8 pg (25.0-35.0); MCHC 31.4 g/dL (31.0-37.0); MCV 95.1 fL (80.0-100.0); Mean Platelet Volume 7.4; Monocytes # (A) 0.5 k/uL (0-1.0); Monocytes % (A) 7 %; Neutrophils # (A) 6.6 k/uL (1.3-7.7); Neutrophils % (A) 85 %; Platelet Count 183 k/uL (150-450); RBC 4.46 m/uL (4.30-5.90); RDW 14.4 % (11.5-15.5); WBC 7.8 k/uL (3.8-10.6)
[2024-02-15 20:03] LABS: ALT 17 U/L (4-49); AST 23 U/L (17-59); African American GFR (CKD) 27 (>60 ml/min/1.73 sqM); Albumin 3.4 g/dL (3.5-5.0); Alkaline Phosphatase 77 U/L (38-126); Anion Gap 6 mmol/L; Blood Urea Nitrogen 50 mg/dL (9-20); Calcium 8.4 mg/dL (8.4-10.2); Carbon Dioxide 24 mmol/L (22-30); Chloride 107 mmol/L (98-107); Glucose 211 mg/dL (74-99); Magnesium 2.3 mg/dL (1.6-2.3); Non-African American GFR(CKD) 24 (>60 ml/min/1.73 sqM); Phosphorus 3.7 mg/dL (2.5-4.5); Potassium 5.1 mmol/L (3.5-5.1); Sodium 137 mmol/L (137-145); Total Bilirubin 0.7 mg/dL (0.2-1.3); Total Protein 5.7 g/dL (6.3-8.2)
--- NOTE | 2024-02-15 20:05 | XR ---
EXAMINATION TYPE: XR pelvis AP view DATE OF EXAM: 02/15/2024 7:40 PM CLINICAL INDICATION: Male, 68 years old with history of fall; PHH COMPARISON: None TECHNIQUE: XR pelvis AP view, examined in a single projection. FINDINGS: There is no evidence of fracture or dislocation. There is no soft tissue abnormality. No a bnormal calcifications are present. The spine appears intact. The hips appear intact. Osteophyte form ation of the superior acetabulum bilaterally with mild joint space narrowing. Left ureteral stent ter minating over the pelvis. Left stent graft present. IMPRESSION: 1. No acute osseous pathology. 2. [id number] degeneration changes of the hip. [facility], , 02/15/2024 8:03 PM
--- NOTE | 2024-02-15 20:05 | CT ---
EXAMINATION TYPE: CT brain cspine wo con CT DLP: 1439 mGycm, Automated exposure control for dose reduction was used. DATE OF EXAM: 02/15/2024 7:38 PM COMPARISON: None. CLINICAL INDICATION: Male, 68 years old with history of fall; Fall TECHNIQUE: Brain: Multiple axial CT images of the brain were obtained without IV contrast. Cspine: Axial CT images from the skull base to the inferior aspect of T2 we obtained without intraven ous contrast. Coronal and sagittal reformatted images were also reviewed. . FINDINGS: Brain: Extra-axial spaces: No abnormal extra-axial fluid collections. Ventricular system: Within normal limits Cerebral parenchyma: No acute intraparenchymal hemorrhage or mass effect. The lepe-white junction is well differentiated. Cerebellum: Unremarkable. Mass effect: No evidence of midline shift. Intracranial vasculature: unremarkable Soft tissues: Normal. Calvarium/osseous structures: No depressed skull fracture. Paranasal sinuses and mastoid air cells: Clear. Visualized orbits: Orbital contents are intact. Cervical spine: Fracture: None. Congenital nonfusion posterior to C1. Osseous structures: Multilevel degenerative disc disease changes with endplate spurring and disc oste ophyte complex's. Vertebral alignment: Within normal limits. Spinal canal/Neural Foramina: Disc osteophyte complexes at C6-C7 with at least mild spinal canal sten osis. No evidence for significant neural foraminal stenosis. Neck soft tissues: Prevertebral soft tissues are within normal limits. Other: The airway is patent. The lung apices are clear. Atherosclerosis of the arterial vasculature. IMPRESSION: 1. No acute intracranial process. 2. No evidence of cervical spine fracture. 3. Mild multilevel degenerative disc disease. [facility], , 02/15/2024 8:02 PM
--- NOTE | 2024-02-15 20:06 | XR ---
EXAMINATION TYPE: XR chest 1V DATE OF EXAM: 02/15/2024 7:40 PM CLINICAL INDICATION: Male, 68 years old with history of fall; H COMPARISON: Chest radiographs from 11/14/2015 TECHNIQUE: XR chest 1V Frontal view of the chest. FINDINGS: Lungs/Pleura: There is no evidence of pleural effusion, focal consolidation, or pneumothorax. Pulmonary vascularity: Unremarkable. Heart/mediastinum: Cardiomediastinal silhouette is unremarkable. Two lead cardiac conduction device o verlying the right hemithorax with lead tips projecting over the right ventricle and right atrium. Musculoskeletal: No acute osseous pathology. Midline sternotomy wires are noted. Other findings: None IMPRESSION: No acute cardiopulmonary disease/process. [facility], Workstation: [id number], 02/15/2024 8:04 PM
[2024-02-15 21:12] LABS: Partial Thromboplastin Time 25.1 sec (22.0-30.0); Prothrombin Time 10.7 sec (10.0-12.5)
[2024-02-15 21:20] LABS: Appearance,Urine Turbid (Clear); Bacteria,Urine Rare /hpf; Bilirubin,Urine Negative (Negative); Blood,Urine Large (Negative); Color,Urine Red; Glucose,Urine (UA) 4+ (Negative); Ketones,Urine Trace (Negative); Leukocyte Esterase,Urine Small (Negative); Nitrite,Urine Negative (Negative); PH, Urine 5.5 (5.0-8.0); Protein,Urine 1+ (Negative); RBC,Urine >182 /hpf (0-5); Specific Gravity,Urine 1.019 (1.001-1.035); Urobilinogen,Urine <2.0 mg/dL (<2.0); WBC,Urine 78 /hpf (0-5)
[2024-02-15 22:14] VITALS: BP 140/68
== END 2024-02-15 22:14 | disposition home or self-care (01) ==
LOC: EC 18:42
CPT/HCPCS: 36415; 70450; 71045; 72125; 72170; 80053; 81001; 83605; 83735; 84100; 84484; 85025; 85610; 85730; 93005; 96360; 96361; 99285

== ENCOUNTER → 2024-08-27 | Outpatient (CLI) | payer MEDICARE, BC ==
--- NOTE | 2024-08-27 12:25 | CTL ---
EXAMINATION TYPE: CT Low Dose Lung DATE OF EXAM ORDERED: 08/27/2024 COMPARISON: Prior CT December 25, 2022 CLINICAL INDICATION: Male, 69 years old with history of Z12.2 LUNG CA SCR; PHH, Former smoker, quit x 7yrs. Hx of 1PPD x50yrs., Lung cancer screening, History of Smoking/tobacco use. TECHNIQUE: Low dose computed tomography scan was performed through the chest at 1 mm thick sections a nd reconstructed images in multiple planes at 1 mm and [address] DLP: 90.[address] CTDI: 2.2 mGy Automated exposure control for dose reduction was used. CT DIAGNOSTIC QUALITY: Satisfactory FINDINGS: Nodules: Scattered small nodules are present bilaterally. For reference there is stable 3 to 4 mm ant erior right upper lobe nodule axial image 135. Stable 4 mm inferior right upper lobe pulmonary nodule image 171. No new or enlarging greater than 4 mm noncalcified nodules. LUNGS: COPD: Severity: Mild Fibrosis: Severity: None Lymph nodes: None Other findings: None RIGHT PLEURAL SPACE: Effusion: None Calcification: None Thickening: None Pneumothorax: None LEFT PLEURAL SPACE: Effusion: None Calcification: None Thickening: None Pneumothorax: None HEART: Heart Size: Normal Coronary Calcification: Severe [place] coronary artery calcification but post-CABG changes are redemon strated. Pericardial Effusion: None Persistent right-sided dual lead pacemaker. OTHER FINDINGS: Upper abdomen: None Bony thorax: Slight scoliotic curvature redemonstrated Supraclavicular region: None Other: Small degree bilateral subareolar gynecomastia again seen. IMPRESSION: No significant new or enlarging greater than 4 [address] non[address] pulmonary nodules. CT LUNG RAD AND CT CHEST RECOMMENDATION: Lung-Rad 2 Benign Appearance or Behavior: Continue annual sc reening with LDCT in 12 months. S Modifier (other clinically significant findings): None [facility], , 08/27/2024 12:23 PM
== END | disposition home or self-care (01) ==
LOC: RADCTMAIN 11:39
PROVIDERS: ATTEND Family Medicine
DX: Z12.2 Encounter for screening for malignant neoplasm of respiratory organs (principal); Z87.891 Personal history of nicotine dependence
CPT/HCPCS: 71271